=== PATIENT | female | born 1960 | race Caucasian/White ===

== ENCOUNTER 2021-10-16 12:20 | Outpatient (CLI) | payer BC, SELFPAY ==
[2021-10-16 12:51] LABS: Hematocrit 44.7 % (33.0-51.0); Mean Corpuscular HGB Conc 34 gm/dL (32-36); Mean Corpuscular Hemoglobin 32 pg (26-34); Mean Corpuscular Volume 94 fL (80-100); Platelet Count* 179 K/uL (140-440); Red Blood Count 4.76 m/uL (4.00-5.20); White Blood Count* 5.89 K/uL (4.50-11.00)
[2021-10-16 14:32] LABS: Slide Review Reflex No
[2021-10-16 21:28] LABS: Albumin* 4.3 g/dL (3.3-5.0)
[2021-10-16 21:29] LABS: Chloride* 107 mmol/L (96-114); Potassium* 4.3 mmol/L (3.6-5.1); Sodium* 142 mmol/L (135-149)
[2021-10-16 21:31] LABS: Aspartate Amino Transferase* 24 U/L (12-35); Bilirubin Total* 0.8 mg/dL (0.1-1.5); Carbon Dioxide* 27 mmol/L (20-32); Cholesterol* 172 mg/dL (90-199); Creatinine* 0.7 mg/dL (0.5-1.5); Estimated Glomerular Filt Rate 100 ml/min; Total Protein* 6.6 g/dL (6.0-8.3)
[2021-10-16 21:32] LABS: Alanine Aminotransferase* 14 U/L (4-35); Alkaline Phosphatase* 134 U/L (40-150); Blood Urea Nitrogen* 15 mg/dL (7-30); Calcium* 9.1 mg/dL (8.4-10.6); Glucose* 93 mg/dL (60-115); HDL Cholesterol* 73 mg/dL (>=50); LDL Cholesterol Calculated 86 mg/dL (<100); Triglycerides* 63 mg/dL (40-149)
== END 2021-10-16 12:21 | disposition home or self-care (01) ==
PROVIDERS: PCP Physician Assistant Medical; Visit Provider Physician Assistant Medical
DX: Z00.00 Encounter for general adult medical examination without abnormal findings (principal); Z13.6 Encounter for screening for cardiovascular disorders; Z13.29 Encounter for screening for other suspected endocrine disorder; Z13.9 Encounter for screening, unspecified
CPT/HCPCS: 80053; 80061; 84443; 85027

== ENCOUNTER 2022-04-16 08:00 | Outpatient (CLI) | payer BC, SELFPAY ==
--- NOTE | 2022-04-16 09:47 | W.ANESCHARGE ---
Anesthesia Charges Start Date/Time Anesthesia Start Date: 04/16/22 Anesthesia Start Time: 09:04 Stop Date/Time Anesthesia Stop Date: 04/16/22 Anesthesia Stop Time: 09:45
--- NOTE | 2022-04-16 09:57 | W.ANESCHARGE ---
Anesthesia Charges Start Date/Time Anesthesia Start Date: 04/16/22 Anesthesia Start Time: 09:04 Stop Date/Time Anesthesia Stop Date: 04/16/22 Anesthesia Stop Time: 09:45
== END 2022-04-16 08:01 | disposition home or self-care (01) ==
LOC: OP CLINIC 08:03
PROVIDERS: PCP Physician Assistant Medical; Visit Provider Surgery
DX: Z12.11 Encounter for screening for malignant neoplasm of colon (principal); K63.5 Polyp of colon; K62.1 Rectal polyp
CPT/HCPCS: 00811; 45385; 88305; J2704

== ENCOUNTER 2022-10-22 09:30 | Outpatient (CLI) | payer BC, SELFPAY | END 2022-10-22 09:31 | disposition home or self-care (01) | LOC: NFLDREF 10-23 08:37 | PROVIDERS: PCP Physician Assistant Medical; Referring Provider Physician Assistant Medical; Visit Provider Physician Assistant Medical | DX: Z00.00 Encounter for general adult medical examination without abnormal findings (principal); D69.6 Thrombocytopenia, unspecified; Z13.6 Encounter for screening for cardiovascular disorders; Z13.29 Encounter for screening for other suspected endocrine disorder | CPT/HCPCS: 80048; 80061; 84443 ==

== ENCOUNTER 2022-11-28 16:24 | Outpatient (CLI) | payer BC, SELFPAY | END 2022-11-28 16:25 | disposition home or self-care (01) | LOC: NFLDREF 11-29 13:29 | PROVIDERS: PCP Physician Assistant Medical; Referring Provider Physician Assistant Medical; Visit Provider Physician Assistant Medical | DX: D69.6 Thrombocytopenia, unspecified (principal); R79.89 Other specified abnormal findings of blood chemistry | CPT/HCPCS: 80076; 84443 ==

== ENCOUNTER 2023-11-07 13:04 | Outpatient (CLI) | payer BC, SELFPAY ==
--- OUTSIDE RECORDS SUMMARY | 2023-11-07 13:06 | XMS_ITS | Clinical Summary ---
Author Organization [facility] Address [address] [place] [address] Care Team Providers Care Digital Imager Name Role Phone Criss Mendez PA-C Primary Care Provider Encounters Date Type Department Care Team Description 09/09/2023 8:15 AM CDT - 09/09/2023 11:59 PM CDT Hospital Encounter [facility] [address], [address] [place] [address] Criss Mendez PA-C Visit for screening mammogram Discharge Disposition: Home or Self Care 09/09/2023 Travel 09/04/2023 Travel from Last 3 Months Social History Tobacco Use Types Packs/Day Years Used Date Smoking Tobacco: Never Assessed Adolescent Education Answer Date Record ed Getting School Help Needed Not on file 01/15 Sex and Gender Information Value Date Recorded Sex Assigned at Not on file Gender Identity Female 08/19/2017 6:02 PM CDT Sexual Orientation Not on file Plan of Treatment Health Maintenance Due Date Last Done Comments ADVANCE CARE PLANNING 1960 ANNUAL REVIEW OF HM ORDERS 1961 CT COLONOGRAPHY 1961 FIT 1961 FLEX SIG 1961 GLUCOSE 1961 sDNA (Cologuard) 1961 HIV SCREENING 1976 HEPATITIS C SCREENING 10/19/1979 LIPID 2001 RSV VACCINE ( & 60+) (1 - 1-dose 60+ series) 2021 PHQ-2 (once per calendar year) 2023 YEARLY PREVENTIVE VISIT 09/07/2023 09/07/19 23, 09/04/2021, 09/15/2020, Additional history exists INFLUENZA VACCINE (#1) 2023 3, 01/05/2022, 01/05/2021, Additional history exists MAMMO SCREENING 09/08/2025 09/09/2023, 11/2022, 09/06/2021, Additional history exists HPV TEST 09/07/2027 09/06/2022, 08/30, 09/15/2020, Additional history exists PAP 09/07/2027 09/06/2022, 08/30, 09/15/2020, Additional history exists DTAP/TDAP/TD IMMUNIZATION (3 - Td or Tdap) 10/08/2028 10/08/2018, 04/19/2008 COLONOSCOPY 04/22/2032 04/22/2022 COLORECTAL CANCER SCREENING 04/22/2032 ZOSTER IMMUNIZATION Completed 01/30/2019, 9 COVID-19 Vaccine Completed 01/12/2023, 09/2021, 08/05/2021, Additional history exists HPV IMMUNIZATION Aged Out No longer e ligible based on patient's age to complete this topic IPV IMMUNIZATION Aged Out No longer e ligible based on patient's age to complete this topic MENINGITIS IMMUNIZATION Aged Out No l onger eligible based on patient's age to complete this topic Pneumococcal Vaccine: Pediatrics (0 to 5 Years) and At-Risk Patients (6 to 64 Years) Aged Out No longer eligible based on patient's age to complete this topic RSV MONOCLONAL ANTIBODY Aged Out No l onger eligible based on patient's age to complete this topic Procedures Procedure Name Priority Date/Time Associated Diagnosis Comments MA SCREENING BILATERAL W/ WILDA Routine 09/09/2023 8:35 AM CDT Visit for screening mammogram GYNECOLOGIC CYTOLOGY Routine 09/06/2022 4:31 PM CDT Encounter for gynecological examination (general) (routine) without abnormal findings HPV HIGH RISK TYPES DNA CERVICAL Routine 09/06/2022 4:31 PM CDT Encounter for gynecological examination (general) (routine) without abnormal findings from Last 3 Months or Most Recently Relevant to Health Maintenance Results * MA Screen Bilateral w/Wilda (09/09/2023 8:35 AM CDT) Anatomical Region Laterality Modality Breast Bilateral Mammography Impressions 09/09/2023 10:03 AM CDT IMPRESSION: ACR BI-RADS Category 1: Negative BREAST CANCER SCREENING RECOMMENDATION: Routine yearly mammography beginning at age 40 or as discussed with your provider. The results and recommendations of this examination will be communicated to the patient. Radha Wilson MD Narrative 09/09/2023 10:03 AM CDT BILATERAL FULL FIELD DIGITAL SCREENING MAMMOGRAM WITH TOMOSYNTHESIS Performed on: 09/09/23 Compared to: 09/07/2022, 09/06/2021, and 09/08/2020 Technique: ??This study was evaluated with the assistance of Computer-Aided Detection. ??Breast Tomosynthesis was used in interpretation. Findings: The breasts have scattered areas of fibroglandular density. ?? There is no radiographic evidence of malignancy. Criss Mendez PA-C [facility] ORDERABLES * Gynecologic Cytology (PAP) (09/06/2022 4:31 PM CDT) Interpretation Negative for Intraepithelial Lesion or Malignancy (NILM) 09/10/2022 1:47 PM CDT [facility] Comment Papanicolaou Test Limitations: Cervical cytology is a screening test with limited sensitivity, and regular screening is critical for cancer prevention. Pap tests are primarily effective for the diagnosis/prevent ion of squamous cell carcinoma, not adenocarcinoma or other cancers. 09/10/2022 1:47 PM CDT [facility] Specimen Adequacy Satisfactory for evaluation, endocervical/martin sformation zone component present 09/10/2022 1:47 PM CDT [facility] Clinical Information none 09/10/2022 1:47 PM CDT [facility] LMP/Menopause Date NONE 09/10/2022 1:47 PM CDT [facility] Reflex Testing Yes regardless of result 09/10/2022 1:47 PM CDT [facility] Previous Abnormal? No 09/10/2022 1:47 PM CDT [facility] Previous Abnormal Diagnosis Neg/Neg hpv 09/10/2022 1:47 PM CDT [facility] Performing Labs The technical component of this testing was completed at [facility] 09/10/2022 1:47 PM CDT [facility] Brushing CERVIX UTERI STRUCTURE / Unknown 09/06/2022 4:31 PM CDT 09/06/2022 9:40 PM CDT [facility] Specialty Lab [address], [address] [id number] [phone] * HPV High Risk Types DNA Cervical (09/06/2022 4:31 PM CDT) Other HR HPV Negative Negative 09/12/2022 6:41 AM CDT [facility] HPV16 DNA Negative Negative 09/12/2022 6:41 AM CDT [facility] HPV18 DNA Negative Negative 09/12/2022 6:41 AM CDT [facility] FINAL DIAGNOSIS This patient's sample is negative for HPV DNA. This test was developed and its performance characteristics determined by the [facility], Molecular Diagnostics Laboratory. It has not been cleared or approved by the FDA. The laboratory is regulated under CLIA as qualified to perform high-complexity testing. This test is used for clinical purposes. It should not be regarded as investigational or for research. METHODOLOGY: The Miranda Dennis [id number] system uses automated extraction, simultaneous amplification of HPV (L1 region) and beta-globin, followed by real time detection of fluorescent labeled HPV and beta globin using specific oligonucleotide probes. The test specifically identifies types HPV 16 DNA and HPV 18 DNA while concurrently detecting the rest of the high risk types (31, 33, 35, 39, 45, 51, 52, 56, 58, 59, 66 or 68). COMMENTS: This test is not intended for use as a screening device for woman under age 30 with normal cervical cytology. Results should be correlated with cytologic and histologic findings. Close clinical followup is recommended. 09/12/2022 6:41 AM CDT [facility] Brushing CERVIX UTERI STRUCTURE / Unknown Non-blood Collection / Unknown 09/06/2022 4:31 PM CDT 09/11/2022 8:15 AM CDT Annelise Gallegos MD LAB - BLOOD [facility] Molecular Diagnostics [address] [facility], [address] [place] [address], [facility] [phone] from Last 3 Months or Most Recently Relevant to Health Maintenance Care Teams Digital Imager Relationship Specialty Start Date End Date Criss Mendez PA-C [facility] [address] [place] [address] PCP - General Physician Crankshaft Grinder 09/02/23
--- OUTSIDE RECORDS SUMMARY | 2023-11-07 13:06 | XMS_ITS | Encounter Summary ---
Author Organization [facility] Address [address] [place] [address] Care Team Providers Care Maintenance Welder Name Role Phone Criss Mendez PA-C Primary Care Provider Encounter Details Date Type Department Care Team (Latest Contact Info) Description 09/09/2023 Travel Social History Tobacco Use Types Packs/Day Years Used Date Smoking Tobacco: Never Assessed Adolescent Education Answer Date Record ed Getting School Help Needed Not on file 01/15 Sex and Gender Information Value Date Recorded Sex Assigned at Not on file Gender Identity Female 08/19/2017 6:02 PM CDT Sexual Orientation Not on file documented as of this encounter Plan of Treatment Not on file documented as of this encounter Visit Diagnoses Not on filedocumented in this encounter Care Teams Maintenance Welder Relationship Specialty Start Date End Date Criss Mendez PA-C [facility] [address] [place] [address] PCP - General Physician Computer Video Game Designer 09/02/23 documented as of this encounter
--- OUTSIDE RECORDS SUMMARY | 2023-11-07 13:06 | XMS_ITS | Referral Summary ---
Author Organization [facility] Address [address] [place] [address] Care Team Providers Care Junior Account Executive Name Role Phone Criss Mendez PA-C Primary Care Provider Encounters Date Type Department Care Team Description 09/09/2023 Travel 09/09/2023 8:15 AM CDT - 09/09/2023 11:59 PM CDT Hospital Encounter [facility] [address], [address] [place] [phone] Criss Mendez PA-C Visit for screening mammogram Discharge Disposition: Home or Self Care 09/04/2023 Travel from Last 3 Months Social History Tobacco Use Types Packs/Day Years Used Date Smoking Tobacco: Never Assessed Adolescent Education Answer Date Record ed Getting School Help Needed Not on file 01/15 Sex and Gender Information Value Date Recorded Sex Assigned at Not on file Gender Identity Female 08/19/2017 6:02 PM CDT Sexual Orientation Not on file Plan of Treatment Not on file Procedures Procedure Name Priority Date/Time Associated Diagnosis [...] radiographic evidence of malignancy. Criss Mendez PA-C [facility] MAMMOGRAPHY ORDERABLES * Gynecologic Cytology (PAP) (09/06/2022 [...] component of this testing was completed at [facility] 09/10/2022 1:47 PM CDT [facility] Brushing CERVIX UTERI STRUCTURE / Unknown 09/06/2022 4:31 PM CDT 09/06/2022 9:40 PM CDT Annelise [facility] Specialty Lab [address] [facility], [address] [address], [facility] [phone] * HPV High Risk Types DNA Cervical (09/06/2022 4:31 PM CDT) Other HR HPV Negative Negative 09/12/2022 6:41 AM CDT [facility] HPV16 DNA Negative Negative 09/12/2022 6:41 AM CDT [facility] HPV18 DNA Negative Negative 09/12/2022 6:41 AM CDT [facility] FINAL DIAGNOSIS This patient's sample is negative for HPV DNA. This test was developed and its performance characteristics determined by the [facility], Molecular Diagnostics Laboratory. It has not been [...] followup is recommended. 09/12/2022 6:41 AM CDT [facility] Brushing CERVIX UTERI STRUCTURE / Unknown Non-blood Collection / Unknown 09/06/2022 4:31 PM CDT 09/11/2022 8:15 AM CDT Annelise Gallegos MD LAB - BLOOD [facility] [address] [facility] [address] [facility], [address] [place] [address], [facility] [phone] from Last 3 Months or Most Recently Relevant to Health Maintenance Care Teams Junior Account Executive Relationship Specialty Start Date End Date Criss Mendez PA-C [facility] [address] [place] [address] PCP - General Physician Operations Plant Attendant 09/02/23
--- OUTSIDE RECORDS SUMMARY | 2023-11-07 13:07 | XMS_ITS | Encounter Summary ---
Author Organization [facility] Address [address] [place] [address] Care Team Providers Care Rail Equipment Operator Name Role Phone Criss Mendez PA-C Primary Care Provider Reason for Referral * Diagnostic Imaging Mammo (Routine) - Pending Review Specialty Diagnoses / Procedures Referred By Gabriel courtney Referred To Contact Radiology. Diagnoses Visit for screening mammogram Procedures MA Screen Bilateral w/Criss Martínez PA-C [address] [address] Referral ID Status Reason Start Date Expiration Date V isits Requested Visits Authorized [id number] Pending Review 09/02/2023 09/01/2024 1 1 Reason for Visit * Diagnostic Imaging Mammo (Routine) - Pending Review Specialty Diagnoses / Procedures Referred By Gabriel courtney Referred To Contact Radiology. Diagnoses Visit for screening mammogram Procedures MA Screen Bilateral w/Criss Martínez PA-C [address] [address] Referral ID Status Reason Start Date Expiration Date V isits Requested Visits Authorized [id number] Pending Review 09/02/2023 09/01/2024 1 1 Encounter Details Date Type Department Care Team (Late st Contact Info) Description 09/09/2023 8:15 AM CDT - 09/09/2023 11:59 PM CDT Hospital Encounter [facility] [address] [facility], [address] [place] [address] Criss Mendez PA-C [facility] [address] [place] [address] Visit for screening mammogram Discharge Disposition: Home or Self Care Social History Tobacco Use Types Packs/Day Years [...] on file documented as of this encounter Procedures Procedure Name Priority Date/Time Associated Diagnosis Comments MA SCREENING BILATERAL W/ WILDA Routine 09/09/2023 8:35 AM CDT Visit for screening mammogram documented in this encounter Results * MA Screen Bilateral w/Wilda (09/09/2023 [...] radiographic evidence of malignancy. Criss Mendez PA-C IMG MAMMOGRAPHY ORDERABLES documented in this encounter Visit Diagnoses Diagnosis Visit for screening mammogram Other screening mammogram documented in this encounter Care Teams Rail Equipment Operator Relationship Specialty Start Date End Date Criss Mendez PA-C [facility] [address] [place] [address] PCP - General Physician Business Dean 09/02/23 documented as of this encounter
--- OUTSIDE RECORDS SUMMARY | 2023-11-07 13:07 | XMS_ITS | Encounter Summary ---
Author Organization [facility] Address [address] [place] [address] Care Team Providers Care Washer Blanket Name Role Phone Criss Mendez PA-C Primary Care Provider Encounter Details Date Type Department Care Team (Latest Contact Info) Description 09/04/2023 Travel Social History Tobacco Use Types Packs/Day [...] on filedocumented in this encounter Care Teams Washer Blanket Relationship Specialty Start Date End Date Criss Mendez PA-C [facility] [address] [place] [address] PCP - General Physician Meal Grinder Tender 09/02/23 documented as of this encounter
--- OUTSIDE RECORDS SUMMARY | 2023-11-07 13:07 | XMS_ITS | Clinical Summary ---
Author Organization [facility] Address [place], [place] [address] Care Team Providers Care Telephone Triage Nurse Name Role Phone Eden Jacobs MD Primary Care Provider + Allergies No known active allergies Medications Medication Sig Dispensed Refills Start Date End Date Status drospirenone-ethinyl estradiol (OCELLA) 3-0.03 mg tablet Take 1 tablet by mouth once daily. 1 Package 0 04/24/2010 Active Active Problems Problem Noted Date Diagnosed Date Preventative health care 11/16/2011 Overview: Seeing Saumya FELL CUTTER. Her PAP and mammo 09.21.2011 were normal. Immunizations Name Administration Dates Next Due AMB Influenza, IIV3 (Age >=3 years)(Flu Clinic O n[facility]) 01/19/2010 Tdap 04/19/2008 Family History Medical History Relation Name Comments Allergies Brother Other Brother autistic Good Health Daughter phil Arthritis Father mild back Good Health Father Other Maternal Grandfather Other Maternal Grandmother Hypertension Mother Blood Disease Paternal Grandfather pernic ious anemia Other Paternal Grandmother Good Health Sister m 1/2 Good Health Son hunter Relation Name Status Comments Brother Alive Daughter phil Alive Father Alive Maternal Grandfather (Age 62) em physema Maternal Grandmother (Age 89) un certain Mother Alive Paternal Grandfather (Age 94) ol d age Paternal Grandmother (Age 76) em physema Sister m 1/2 Alive Son hunter Alive Social History Tobacco Use Types Packs/Day Years Used Date Smoking Tobacco: Never Smokeless Tobacco: Never Alcohol Use Standard Drinks/Week Comments Yes 0 (1 standard drink = 0.6 oz pure alcohol) 0-2 glasses of red wine nightly Sex and Gender Information Value Date Recorded Sex Assigned at Not on file Gender Identity Not on file Sexual Orientation Not on file Obstetrics History Para Term AB IAB SAB Ectopic Multiple Livin g Live Births 3 2 2 1 1 2 Date Outcome GA Total Labor Labor/2nd/3rd Weight Sex Type Anes PTL Silvana A1 A5 Name Clin Term Term IAB Comments Edema with and hig h BP at delivery Last Filed Vital Signs Vital Sign Reading Time Taken Comments Blood Pressure 112/64 11/16/2011 2:19 PM CDT Pulse 78 11/16/2011 2:19 PM CDT Temperature 36.6 ??C (97.9 ??F) 04/24/2010 9:13 AM CS T Respiratory Rate - - Oxygen Saturation - - Inhaled Oxygen Concentration - - Weight 63.4 kg (139 lb 11.2 oz) 11/16/2011 2:19 PM CDT Height 162.6 cm (5' 4) 11/16/2011 2:19 PM CDT Body Mass Index 23.98 11/16/2011 2:19 PM CDT Plan of Treatment Health Maintenance Due Date Last Done Comments Depression screening for age 12+ 1973 HIV for age 15-65 1976 BMI (ht and wt on same day) for age 18+ 10/19/1979 Hepatitis C screening for age 18-79 10/19/1979 Colonoscopy through age 75 2006 Zoster (shingles) series for age 50+ (1 of 2) 10/19/2011 Mammogram for age 45-75 09/09/2015 09/09/19 15, 09/09/2013, 08/31/2011, Additional history exists Lipids for age 45-75 11/15/2016 11/16/2011, 04/24/19 11 Tetanus booster 04/19/2018 04/19/2008 Pap test for age 21-65 10/08/2021 9, 10/08/2018, 08/31/2011 COVID-19 vaccine series (2022- season) 2022 Influenza for age 50-64 12/01/2023 01/19/2010 Tdap Completed 04/19/2008 Pneumococcal series for age 6-64 Aged Out No longer eligible based on patient's age to complete this topic Procedures Procedure Name Priority Date/Time Associated Diagnosis Comments PEOPLESOFT FUNCTIONAL ANALYST THIN PREP PAP SCREEN IMAGED Routine 10/08/2018 11:00 AM CDT SCAN-MAMMOGRAPHY REPORT 09/08/2014 8:19 AM CDT LIPID PANEL Routine 11/16/2011 9:50 AM CDT Screening for lipoid disorders from Last 3 Months or Most Recently Relevant to Health Maintenance Results * PEOPLESOFT FUNCTIONAL ANALYST THIN PREP PAP SCREEN IMAGED (10/08/2018 11:00 AM CDT) Case Report Gynecologic Cytology Report ? Case: [id number] ? Authorizing Provider: ??Unknown, Doctor ?Collected: ? 10/08/2018 1100 ? Ordering Location: ? [facility] ?Received: ?10/08/2018 1807 ? First Screen: ?Sammy Richter ? Rescreen: ?Beth White ? Specimen: ?PEOPLESOFT FUNCTIONAL ANALYST ThinPrep Vial Screening, Cervical/Vaginal ? 10/20/2018 12:34 PM CDT [facility] INTERPRETATION/ RESULT NEGATIVE FOR INTRAEPITHELIAL LESION OR MALIGNANCY (NIL) (none) 10/20/2018 12:34 PM CDT [facility] IMEN ADEQUACY Satisfactory for evaluation Endocervical component present 10/20/2018 12:34 PM CDT [facility] HPV REQUEST HPV and PAP 10/20/2018 12:34 PM CDT [facility] Date of LMP 10/20/2018 12:34 PM CDT [facility] Comment:+14yrs Last Pap Date 09/08/2014 10/20/2018 12:34 PM CDT [facility] Last Pap Result NIL 9 12:34 PM CDT [facility] Automated Review Successful 10/20/2018 12:34 PM CDT [facility] Comment:Specimen processed s uccessfully by automated site director device, ThinPrep Imaging System, [employer] ANCILLARY TESTING PEOPLESOFT FUNCTIONAL ANALYST HPV Ordered, Please see separate report 10/20/2018 12:34 PM CDT [facility] Note The pap test is a screening technique, not a diagnostic procedure. ??It is used primarily to screen for squamous cancers and precursor lesions. ??Published studies have shown that it is subject to both false negative and false positive results. ??The pap test should not be used as the sole means to diagnose or exclude pre-malignant and malignant lesions. Cytology is screened and interpreted at [facility] - [address], [place] [address] and [facility] - [address] [place] [address]; [place] [address] and [facility] - [address]; [place] [address] [address] [facility] [address]; [place] [address] 10/20/2018 12:34 PM CDT [facility] Other (Cervical/Vagina l) 10/08/2018 11:00 AM CDT 10/08/2018 6:07 PM CDT Doctor Unknown PATHOLOGY/CYTOLOGY [facility] [address] [place] [address], [place] * SCAN-MAMMOGRAPHY REPORT (09/08/2014 8:19 AM CDT) Anatomical Region Laterality Modality Other Narrative 09/09/2014 11:18 AM CDT Procedure Note Scanner - 09/08/2014 8:19 AM CDT Scanner OTHER * LIPID PANEL (11/16/2011 9:50 AM CDT) CHOLESTEROL,TOTAL 135 100 - 199 mg/dL [facility] TRIGLYCERIDES 95 <150 mg/dL [facility] HDL CHOLESTEROL 44 >40 mg/dL [facility] CHOL/HDL RATIO 3.07 <4.50 [facility] LDL CHOLESTEROL 72 <131 mg/dL [facility] PATIENT STATUS Fasting [facility] Blood specimen (specimen) BLOOD SPECIMEN / Unknown 11/16/2011 9:50 AM CDT 11/16/2011 2:49 PM CDT Eden Jacobs MD CHEMISTRY [facility] INTERNAL ZIP [address] [place] [address] from Last 3 Months or Most Recently Relevant to Health Maintenance Care Teams Telephone Triage Nurse Relationship Specialty Start Date End Date Eden Jacobs MD [facility] - General 01/11/10
== END 2023-11-07 13:05 | disposition home or self-care (01) ==
PROVIDERS: PCP Physician Assistant Medical; Visit Provider Physician Assistant Medical
DX: R79.89 Other specified abnormal findings of blood chemistry (principal); R74.01 Elevation of levels of liver transaminase levels
CPT/HCPCS: 80053; 80061; 84443

== ENCOUNTER 2023-12-09 16:00 | Outpatient (CLI) | payer BC, SELFPAY ==
--- OUTSIDE RECORDS SUMMARY | 2023-12-15 10:27 | XMS_ITS | Clinical Summary ---
Author Organization [facility] Address [place], [place] [address] Care Team Providers Care Aircraft Engine Dismantler Name Role Phone Eden Jacobs MD Primary Care Provider + Allergies No known active allergies Medications Medication Sig Dispensed Refills Start Date End Date Status drospirenone-ethinyl estradiol (OCELLA) 3-0.03 mg tablet Take 1 tablet by mouth once daily. 1 Package 0 04/24/2010 Active Active Problems Problem Noted Date Diagnosed Date Preventative health care 11/16/2011 Overview (11/16/2011): Seeing Sa[employer] [employer]. Her PAP and mammo 09.21.2011 were normal. [...] 10/08/2018, 08/31/2011 COVID-19 vaccine series (2022- season) 2023 Influenza for age 50-64 12/01/2023 01/19/2010 Tdap Completed 04/19/2008 Pneumococcal series for age 6-64 Aged Out No longer eligible based on patient's age to complete this topic Procedures Procedure Name Priority Date/Time Associated Diagnosis Comments ARCHITECTURE FACULTY MEMBER THIN PREP PAP SCREEN IMAGED Routine 10/08/2018 11:00 AM CDT SCAN-MAMMOGRAPHY REPORT 09/08/2014 8:19 AM CDT LIPID PANEL Routine 11/16/2011 9:50 AM CDT Screening for lipoid disorders from Last 3 Months or Most Recently Relevant to Health Maintenance Results * ARCHITECTURE FACULTY MEMBER THIN PREP PAP SCREEN IMAGED (10/08/2018 11:00 AM CDT) Case Report Gynecologic Cytology Report ? Case: [id number] ? Authorizing Provider: ??Unknown, Doctor ?Collected: ? 10/08/2018 1100 ? Ordering Location: ? [facility] ?Received: ?10/08/2018 1807 ? First Screen: ?Sammy Richter ? Rescreen: ?Beth White ? Specimen: ?ARCHITECTURE FACULTY MEMBER ThinPrep Vial Screening, Cervical/Vaginal ? 10/20/2018 12:34 PM CDT [facility] INTERPRETATION/ RESULT NEGATIVE FOR INTRAEPITHELIAL LESION OR MALIGNANCY (NIL) (none) 10/20/2018 12:34 PM T [facility] IMEN ADEQUACY Satisfactory for evaluation Endocervical component present 10/20/2018 12:34 PM CDT [facility] HPV REQUEST HPV and PAP 10/20/2018 12:34 PM CDT [facility] Date of LMP 10/20/2018 12:34 PM CDT [facility] Comment:+14yrs Last Pap Date 09/08/2014 10/20/2018 12:34 PM CDT [facility] Last Pap Result NIL 9 12:34 PM T [facility] Automated Review Successful 10/20/2018 12:34 PM CDT [facility] Comment:Specimen processed s uccessfully by automated farm crew leader device, ThinPrep Imaging System, [employer] ANCILLARY TESTING ARCHITECTURE FACULTY MEMBER HPV Ordered, Please see separate report 10/20/2018 12:34 PM CDT [facility] Note The pap test is a [...] lesions. Cytology is screened and interpreted at [facility] - [address], [place] [address] and [facility] - [address] [place] [address]; [place] [address] and [facility] - [address]; [place] [address] and [facility] [address]; [place] [address] 10/20/2018 12:34 PM T [facility] Other (Cervical/Vagina l) 10/08/2018 11:00 AM CDT 10/08/2018 6:07 PM CDT Doctor Unknown PATHOLOGY/CYTOLOGY [facility] [address] [place] [address], * SCAN-MAMMOGRAPHY REPORT (09/08/2014 8:19 AM CDT) Anatomical Region Laterality Modality Other Narrative 09/09/2014 11:18 AM CDT Procedure Note Scanner - 09/08/2014 8:19 AM CDT Scanner OTHER * LIPID PANEL (11/16/2011 9:50 AM CDT) CHOLESTEROL,TOTAL 135 100 - 199 mg/dL [facility] TRIGLYCERIDES 95 <150 mg/dL [facility] HDL CHOLESTEROL 44 >40 mg/dL [facility] CHOL/HDL RATIO 3.07 <4.50 [facility] LDL CHOLESTEROL 72 <131 mg/dL [facility] PATIENT STATUS Fasting [facility] Blood specimen (specimen) BLOOD SPECIMEN / Unknown 11/16/2011 9:50 AM CDT 11/16/2011 2:49 PM CDT Eden Jacobs MD CHEMISTRY [facility] INTERNAL ZIP [address] [place] [address] from Last 3 Months or Most Recently Relevant to Health Maintenance Care Teams Aircraft Engine Dismantler Relationship Specialty Start Date End Date Eden Jacobs MD PCP - General 01/11/10
--- OUTSIDE RECORDS SUMMARY | 2023-12-15 10:27 | XMS_ITS | Referral Summary ---
Author Organization [facility] Address [address] [place] [address] Care Team Providers Care Bakery Team Member Name Role Phone Criss Mendez PA-C Primary Care Provider Social History Tobacco Use Types Packs/Day Years [...] radiographic evidence of malignancy. Criss Mendez PA-C [facility] MAMMOGRAPHY ORDERABLES * Gynecologic Cytology (PAP) (09/06/2022 [...] component of this testing was completed at [facility] 09/10/2022 1:47 PM CDT [facility] Brushing CERVIX UTERI STRUCTURE / Unknown 09/06/2022 4:31 PM CDT 09/06/2022 9:40 PM CDT Annelise Gallegos MD LAB - [facility] Specialty Lab [address] [facility], [address] [address], [facility] [phone] * HPV High Risk Types DNA Cervical [...] its performance characteristics determined by the [facility] Molecular Diagnostics Laboratory. It has not [...] [facility] [address] [facility] [address], [address] [place] [address], [facility] [phone] from Last 3 Months or Most Recently Relevant to Health Maintenance Care Teams Bakery Team Member Relationship Specialty Start Date End Date Criss Mendez PA-C [facility] [address] [place] [address] PCP - General Physician Fruit Distributor 09/02/23
--- OUTSIDE RECORDS SUMMARY | 2023-12-15 10:27 | XMS_ITS | Encounter Summary ---
Author Organization [facility] [facility] Address [address] [place] [address] Care Team Providers Care Can Cleaner Name Role Phone Criss Mendez PA-C Primary Care Provider Reason for Referral * Diagnostic Imaging Mammo (Routine) - Pending Review Specialty Diagnoses / Procedures Referred By Gabriel courtney Referred To Contact Radiology. Diagnoses Visit for screening mammogram Procedures [place] Screen Bilateral w/Criss Martínez PA-C [address] [address] Referral ID Status Reason Start Date Expiration Date V isits Requested Visits Authorized [id number] Pending Review 09/02/2023 09/01/2024 1 1 Reason for Visit * Diagnostic Imaging Mammo (Routine) - Pending Review Specialty Diagnoses / Procedures Referred By Gabriel courtney Referred To Contact Radiology. Diagnoses Visit for screening mammogram Procedures [place] Screen Bilateral w/Criss Martínez PA-C [address] [address] Referral ID Status Reason Start Date Expiration Date V isits Requested Visits Authorized [id number] Pending Review 09/02/2023 09/01/2024 1 1 Encounter Details Date Type Department Care Team (Late st Contact Info) Description 09/09/2023 8:15 AM CDT - 09/09/2023 11:59 PM CDT Hospital Encounter [facility] [address] [facility], [address] [place] [address] Criss Mendez PA-C [facility] [address] [place] [address] Visit for screening mammogram Discharge Disposition: Home [...] mammogram documented in this encounter Care Teams Can Cleaner Relationship Specialty Start Date End Date Criss Mendez PA-C [facility] [address] [place] [address] PCP - General Physician It Systems Administrator 09/02/23 documented as of this encounter
--- OUTSIDE RECORDS SUMMARY | 2023-12-15 10:27 | XMS_ITS | Encounter Summary ---
Author Organization [facility] Address [address] [place] [address] Care Team Providers Care Branch Sales Manager Name Role Phone Criss Mendez PA-C Primary [...] on filedocumented in this encounter Care Teams Branch Sales Manager Relationship Specialty Start Date End Date Criss Mendez PA-C [facility] [address] [place] [address] PCP - General Physician Metrology Engineer 09/02/23 documented as of this encounter
--- OUTSIDE RECORDS SUMMARY | 2023-12-15 10:27 | XMS_ITS | Data Portability ---
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 -RHM: Pap smear up to date, due in 2027. Declines STD screening. Calcium and vitamin D recommendations reviewed. Regular cardiovascular exercise recommendations reviewed. Reviewed breast cancer screening recommendations, namely breast self awareness and annual mammograms, just completed today, results pending. Colon cancer screening up to date, due in 2029, discussed today. Bone density screening at age 65 or sooner with risk factors. Fasting labs with PCP. Vaccine recommendations reviewed. [email or web address] Not available 09/09/2023 12:37:26 Plan of Treatment Reminders Order Date Submit Date Provider Last Modified By Organization Details Last Modified Time Details Appointments None recorded. Lab hemoglobin (Hb), fingerstick , blood 2020 021 [email or web address] 9 [id number] _[place] , [address] [facility], [address], [place], [address], 15:10:19 pap, LB 2020 021 [facility], [address] [place], [address], 06/25/202 1 11:37:18 HPV DNA, high-risk 2020 021 [facility], [address], [address], 11:37:17 Pap test, slide(s), cervical 2022 023 [facility], [address] [facility], [address], [place], [address], 3 07:43:19 Referral None recorded. Procedures None recorded. Surgeries None recorded. Imaging None recorded. Medication Orders None recorded. Patient TargetsNo targets recorded. Patient InstructionsNo instructions recorded. Reason for Referral None Reported. Results Created Date Observation Date Name Description Value Unit Range Abnormal Flag Note LastModifiedBy Organization Detail LastModifiedTime 09/15/2020 hemog lobin (Hb), finge rstic k, blood fingerstick hemoglobin 14.3 g/dL 12.0-1 5.0 Not Available [id number] [address] [facility] [address], [place], [address], 09/15/2020 10:22:29 09/16/19 21 09/15/2020 HPV HIGH RISK DNA WITH 16/18 GENOT YPING HPV high risk type 16 Negati ve for HPV type 16. negati ve for HPV type 16. Not Available [facility] [address] [place], [address], 09/23/2020 11:37:17 09/16/19 21 09/15/2020 HPV HIGH RISK DNA WITH 16/18 GENOT YPING HPV high risk type 18 Negati ve for HPV type 18. negati ve for HPV type 18. Not Available [facility] [address] [place], [address], 09/23/2020 11:37:17 09/16/19 21 09/15/2020 HPV HIGH RISK DNA WITH 16/18 GENOT YPING HPV other high risk types Negati ve for other high risk HPV types. negati ve for other high risk HPV types. HPV other high risk types inclu de 31, 33, 35, 39, 45, 51, 52, 56, 58, 59, 66, and 68. Not Available [facility] [address] [place], [address], 09/23/2020 11:37:17 09/16/19 21 09/15/2020 PAP TEST (BRAND ATTENDANT CYTOL OGY) case report See note CASE REPOR T ----- ----- ----- ----- ----- ----- ----- ----- Pap Smear Case: [id number] Autho micky iglesias Provi anthony: Brenda Schmitt MD Colle cted: 09/15 10:02 AM Order ing Locat ion: [facility] ia Healt h Recei yves: 09/15 03:05 PM [facility] First Scree n: Dulce Markham Speci men: Cervi johnson Thin Prep with HPV Test Image r Screcorina sheehan, Cervi x ===== ===== ===== ==== = INTER PRETA TION: = ===== ===== ===== ==== Negat kavita for intra epith elial lesio n or thomas nant cells . Elect quincy collins d by Dulce Markham on 2020 at 10:36 AM SPECI MEN ADEQU ACY ----- ----- ----- ----- ----- ----- ----- ----- Satis facto ry for evalu ation . Endoc farhat al/tr ansfo rmati on zone compo nent absen t. CLINI JOHNSON INFOR MATIO N ----- ----- ----- ----- ----- ----- ----- ----- Postm enopa usal LMP ----- ----- ----- ----- ----- ----- ----- ----- N/A PAP DISCL AIMER ----- ----- ----- ----- ----- ----- ----- ----- This speci men was scree paulo by the ThinP rep Imagi ng Syste m prior to manua l revie w by a cytot echno logis t and/o r patho logis t. The Pap test is a scree sissy test and has an irred ucibl e false -nega tive rate. Routi ne perio dic testi ng and follo w-up of unexp lenora d clini johnson signs and sympt oms are impor tant to minim ize the conse quenc e of false -nega tive Pap tests . Megan pinzon et al. 2012 Updat ed Conse nsus Guide lines for the Manag ement of Abnor mal Cervi johnson Cance r Scree sissy Tests and Cance r Precu rsors . J Low Genit Tract Dis 2013; 17 (5): S2-S2 7 Not Available [facility] [address], [place], [address], 09/23/2020 11:37:18 09/07/19 23 09/06/2022 GYNEC OLOGI C CYTOL OGY (PAP SMEAR ) gynecologic cytology SEE RESULT S BELOW SPECI MEN SOURC E Stanley ing Cervi x BKR LAB AP BRAND ATTENDANT INTER PRETA TION: Negat kavita for Intra epith johnathon lamb or Thomas dominguez ([facility] ) Elect quincy almanzar karina d by Gabrielle Post do, WOLF (ASCP ) on 2022 at 1:47 PM Path repor [email or web address] ments Imp Spec: Papan icola ou Test Limit ation s: Cervi johnson cytol ogy is a scree sissy test with limit ed sensi tivit y, and regul ar scree sissy is criti johnson for cance r preve ntion . Pap tests are prima rily effec tive for the diagn osis/ preve ntion of squam ous cell carci noma, not adeno carci noma or other cance rs. BKR LAB AP BRAND ATTENDANT ADEQU ACY: Satis facto ry for evalu ation , endoc ervic al/tr ansfo rmati on zone compo nent prese nt Path repor t.rel evant Hx Spec: none BKR LAB AP LMP: NONE BKR LAB AP HPV REFLE X: Yes regar dless of resul t BKR LAB AP PREVI OUS ABNOR MAL: No BKR LAB AP PREVI OUS ABNL DX: Neg/N eg hpv Path repor [email or web address] ments Imp Spec: The techn ical compo nent of this testi ng was compl eted at [facility] [place] [facility] Not Available [address], [place], [address], 09/12/2022 07:43:19 09/07/19 23 09/06/2022 HPV HIGH RISK TYPES DNA CERVI JOHNSON other HR HPV Negati ve negati ve Not Available [address], [place], [address], 09/12/2022 07:43:25 09/07/19 23 09/06/2022 HPV HIGH RISK TYPES DNA CERVI JOHNSON HPV16 DNA Negati ve negati ve Not Available [address], [place], [address], 09/12/2022 07:43:25 09/07/19 23 09/06/2022 HPV HIGH RISK TYPES DNA CERVI JOHNSON HPV18 DNA Negati ve negati ve Not Available [address], [place], [address], 09/12/2022 07:43:25 09/07/19 23 09/06/2022 HPV HIGH RISK TYPES DNA CERVI JOHNSON final diagnosis See note below This patie nt's sampl e is negat kavita for HPV DNA. This test was nati oped and its perfo rmanc e asif cteri stics deter mined by the [facility] [place] [facility], [facility] at[facility] . It has not been clear ed or appro yves by the FDA. The labor atory is regul ated under CLIA as quali fied to perfo rm high- compl exity testi ng. This test is used for clini johnson purpo ses. It shoul d not be regar ded as inves tigat ional or for resea rch. METHO DOLOG Y: The Miranda Dennis 4800 syste m uses autom ated extra ction , simul taneo us ampli ficat ion of HPV (L1 regio n) and beta- globi n, follo wed by real time detec tion of fluor escen t label ed HPV and beta globi n using speci fic oligo nucle otide probe s. The test speci fical ly ident ifies types HPV 16 DNA and HPV 18 DNA while concu rrent ly detec ting the rest of the high risk types (31, 33, 35, 39, 45, 51, 52, 56, 58, 59, 66 or 68). COMME NTS: This test is not inten ded for use as a scree sissy devic e for woman under age 30 with haris l cervi johnson cytol ogy. Resul ts shoul d be corre lated with cytol ogic and histo logic findi ngs. Close clini johnson follo wup is recom josseline d. Not Available [address], [place], [address], 09/12/2022 07:43:25 09/08/19 22 09/06/2021 MAMMO , scree sissy, bilat eral, w/ CAD No observ ation record ed. [email or web address] [facility] [address] [facility], [place], [address], 09/07/2021 11:36:04 09/08/19 23 09/07/2022 MAMMO , scree sissy, tomos ynthe sis, bilat eral, w/ CAD No observ ation record ed. [email or web address] [facility] [address] [facility], [place], [address], 09/07/2022 15:41:43 Result Notes None recorded. Problems No Known Problems Procedures Surgical History Date Name Laterality Status Provider Name and Address Organization Details Recorded Time 09/08/19 23 Date of Last Mammogram completed Kayleigh Yip null [place] [facility] 09/09/2023 12:00:04 09/07/19 23 Date of Last Pap Smear completed Lesia el [place] [facility] 09/12/2022 11:46:10 04/23/19 23 Date of [place] [address], [place], [address], [place] [facility] [facility] 09/06/2022 16:20:47 tonsillectomy completed Not Available [facility] 11/09/2019 01:06:00 tooth extraction completed [facility] 11/09/2019 01:06:00 colposcopy of cervix completed Not Available [facility] 11/09/2019 01:06:00 Removal of ovarian cyst(s) completed Not Available [facility] 11/09/2019 01:06:00 Imaging Results Imaging Date Name Status LastModified by Organiz ation Details LastModified Time 09/06/2021 MAMMO, screening, bilateral, w/ CAD completed [email or web address] [facility] [address] [facility], [place], [address], 09/07/2021 11:36:04 09/07/2022 MAMMO, screening, tomosynthe sis, bilateral, w/ CAD completed [email or web address] [facility] [address] [place], [address], 09/07/2022 15:41:43 Procedure Notes None recorded. Medical Equipment None Reported. Allergies Allergen ID Allergen Name Allergen Category Reaction Reaction Severity Criticality Documentation Date Start Date Code Code System Note Provider Name and Address Organization Details Recorded Time 591301 pseudoeph edrine hydrochlo ride medicatio n Not available Not available Not available 11/06/2019 04084 RxNorm *Note : 09/16 - Not Available [facility] 16:59:03 Medications Name Sig Start Date Stop Date Status Note LastModified by Organization Details LastModified Time binaxnow cov kit home abigail 09/06 completed Not Available Not Available Not Available ketoconazol e 2 % topical cream active Not Available Not Available Not Available fluocinonid e 0.05 % topical cream APPLY CREAM TOPICALLY TO LEFT WRIST TWICE DAILY FOR 2 WEEKS 09/06 completed Not Available Not Available Not Available Zyrtec 10 mg capsule Take by oral route. active Not Available Not Available No t Available BinaxNOW COVID-19 Ag Self Test kit Use as Directed on the Package 09/06 completed Not Available Not Available Not Available Vitals Date Recorded Body height Body mass index (BMI) Body weight Systolic blood pressure Diastolic blood pressure Provider Name and Address Organization Details Last Updated DateTime 09/04/2021 162.4584 cm 25.1 kg/m2 62231.49 g 126 mm[Hg] 80 mm[Hg] Sari Antoine (TERMED) [facility] SHIP'S OFFICER 2 17:15:38 Date Recorded Body weight Body mass index (BMI) Body height Systolic blood pressure Diastolic blood pressure Provider Name and Address Organization Details Last Updated DateTime 09/06/2022 61417.75 g 24.4 kg/m2 160.02 cm 122 mm[Hg] 88 mm[Hg] Sari Antoine (TERMED) [facility] SHIP'S OFFICER 3 16:11:17 Date Recorded Body height Body mass index (BMI) Body weight Systolic blood pressure Diastolic blood pressure Provider Name and Address Organization Details Last Updated DateTime 09/09/2023 160.02 cm 26.3 kg/m2 27795.11 g 114 mm[Hg] 78 mm[Hg] Kayleigh Yip [facility] SHIP'S OFFICER 4 12:03:48 Date Recorded Body height Body mass index (BMI) Body weight Systolic blood pressure Diastolic blood pressure Provider Name and Address Organization Details Last Updated DateTime 09/15/2020 162.4584 cm 24.2 kg/m2 80157.52 g 120 mm[Hg] 76 mm[Hg] Sari Antoine (TERMED) GIOVANNI Ellis [employer] OFF[employer] 1 10:17:16 Social History Question Answer Notes LastModified by Organizat ion Details LastModified Time Tobacco Smoking Status Former Smoker Age Start/Stop: Kayleigh el, GIOVANNI Ellis [employer] OFF[employer] 09/04/2021 11:18:06 Do You Have An Advance Directive? Yes Information not available 09/09/2023 What Is Your Level Of Alcohol Consumption? Occasional Current Some Day Information not available 09/04/2021 What Is Your Level Of Caffeine Consumption? Moderate 2c/day Information not available 09/06/2022 Which Illicit Or Recreational Drugs Have You Used? 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 Information not available 09/04/2021 Do You Use Any Illicit Or Recreational Drugs? No Information not available 09/04/2021 Sex: Unknown Functional Status Question Answer Note LastModified by Organizat ion Details LastModified Time What is your exercise level? Heavy Heavy Amount of Exercise (4 or more times weekly) *Note: runs 5K 3-4x/week, weights Information not available 11/09/2019 Mental Status None recorded. Family History Relationship Description Onset Age of this Age Resolved Age Notes Mother Benign essential hypertension Hypertension Father Squamous cell carcinoma of skin 86 Medical History No medical history recorded. Gynecological History Statement/Question Response History of Abnormal PAP Y 53 History of Recurrent Ovarian Cysts Y HPV Test Negative Date of Last Colonoscopy 04/23/2022 Date of Last Mammogram 09/07/2022 History of Sexually Transmitted Infectio n N Y N Urinary Incontinence Symptoms N Date of Last Pap Smear 09/06/2022 Post Menopausal Hormone Therapy User Nev er Obstetrics History GPAL:G 3 P 2 0 1 2 Type Value Multiple Births 0 Full Term 2 Induced 0 Spontaneous 1 Premature 0 Living 2 Ectopics 0 Total 3 Immunizations Vaccine Type Date Status Provider Name and Address Organization Details Recorded Time Influenza, split virus, quadrivalent, preservative 12/25/2018 [facility] 09/09/2023 08:30:35 Influenza, split virus, quadrivalent, preservative 12/26/2017 completed [facility] 09/09/2023 08:30:35 Influenza, split virus, quadrivalent, preservative 12/31/2019 completed Kayleigh Will null, [facility] 09/09/2023 08:30:35 Influenza, split virus, quadrivalent, preservative 01/05/2021 completed [facility] 09/09/2023 08:30:35 Influenza, split virus, quadrivalent, preservative 01/10/2017 completed [facility], [facility] 09/09/2023 08:30:35 zoster recombinant 10/08/2018 completed [facility], [facility] 09/09/2023 08:30:35 zoster recombinant 01/30/2019 completed Kayleigh Will null, [facility] 09/09/2023 08:30:35 COVID-19, mRNA, LNP-S, PF, 30 mcg/0.3 mL dose 05/17/2020 completed Kayleigh Will null, [facility] 09/09/2023 08:30:35 COVID-19, mRNA, LNP-S, PF, 30 mcg/0.3 mL dose 06/07/2020 completed Kayleigh Will null, [facility] 09/09/2023 08:30:35 COVID-19, mRNA, LNP-S, PF, 30 mcg/0.3 mL dose 12/24/2020 completed [facility] null, [facility] 09/09/2023 08:30:35 COVID-19, mRNA, LNP-S, PF, 30 mcg/0.3 mL dose, adore-sucrose 08/05/2021 completed [facility] null, [facility] 09/09/2023 08:30:35 COVID-19, mRNA, LNP-S, bivalent, PF, 30 mcg/0.3 mL dose 01/05/2022 completed Kayleigh Will null, [facility] 09/09/2023 08:30:36 Tdap 04/19/2008 completed Kayleigh Will null, [facility] 09/09/2023 08:30:36 Novel [id number], all formulations 03/22/2009 completed Kayleigh Will null, [facility] 09/09/2023 08:30:36 Influenza, split virus, trivalent, preservative 12/09/2008 completed Kayleigh Will null, [facility] 09/09/2023 08:30:36 Influenza, split virus, trivalent, preservative 01/19/2010 completed Kayleigh Will null, [facility] 09/09/2023 08:30:36 Influenza, split virus, trivalent, PF 01/09/2012 completed Kayleigh Will null, [facility] 09/09/2023 08:30:36 Influenza, split virus, trivalent, PF 01/15/2013 completed Kayleigh Will null, [facility] 09/09/2023 08:30:36 Influenza, split virus, trivalent, PF 01/27/2014 completed Kayleigh Will null, [facility] 09/09/2023 08:30:36 Influenza, split virus, trivalent, PF 02/23/2011 completed Kayleigh Will null, [facility] 09/09/2023 08:30:36 Td (adult), 5 Lf tetanus toxoid, preservative free, adsorbed 10/08/2018 completed Kayleigh Will null, [facility] 09/09/2023 08:30:36 Influenza, split virus, quadrivalent, PF 01/05/2022 completed Kayleigh Will null, [facility] 09/09/2023 08:30:36 Influenza, recombinant, quadrivalent, PF 01/12/2023 completed Kayleigh Will null, [facility] 09/09/2023 11:59:40 COVID-19, mRNA, LNP-S, PF, 50 mcg/0.5 mL 01/12/2023 completed GIOVANNI Woods [employer]ICER 09/09/2023 11:59:40 Past Encounters Encounter ID Performer Location Encounter Start Date Encounter Closed Date Diagnosis/Indication Diagnosis SNOMED-CT Code Diagnosis ICD10 Code [id number] BRENDA THORNE MD [id number] [address] [place] [address] 09/15/2020 10:05:46 09/15/2020 10:47:09 Gynecologic examination 75076388 Z01.177 [id number] BRENDA THORNE MD [id number] [address] [place] [address] 09/04/2021 17:05:23 09/04/2021 17:32:58 Gynecologic examination 78023837 Z01.539 [id number] BRENDA THORNE MD [id number] [address] [place] [address] 09/06/2022 15:52:06 09/06/2022 16:47:13 Gynecologic examination 28179153 Z01.231 [id number] TARA SADLER MD [id number] [address] [place] [address] 09/09/2023 11:49:36 09/09/2023 12:41:41 Gynecologic examination 99607352 Z01.419 Health Concerns Section Related Observation LastModified by Organization Detai ls LastModified Time None Recorded Concern Status LastModified by Organization Details LastModified Time None Recorded Advance Directives Directive Y: Payers Encounter Date Sequence Insurance Name Policy Number Policy Goel Covered Member ID Goel Member ID Guarantor Name 09/15/2020 1 [place] [id number] Dotty E D Hanis [id number] Dotty E D Hanis 09/04/2021 1 [place] [id number] Dotty E D Hanis [id number] Dotty Gould D Hanis 09/06/2022 1 [place] [id number] Dotty Gould D Hanis [id number] Dotty Gould D Hanis 09/09/2023 1 [place] [id number] Dotty Gould D Hanis [id number] Dotty Gould D Hanis Notes Date Note Type Note Provider Name and Address Organization Details Recorded Time 09/04/2021 text/html HPI Notes: Annua l Postmenopausal ([facility]) Reported by patient. Patient Relationship To Practice: established patient Sexually Active: Yes: same partner Mammogram: due; scheduled Pap Smear +/- HPV Cotesting: up-to-date Thyroid/Lipid Screening: done at primary. [place]oscopy[place] [address] [facility],[address], [place], [address], [place] [facility] 09/04/2021 17:32:49 09/06/2022 text/html HPI Notes: Annua l Postmenopausal ([facility]) Reported by patient. Patient Relationship To Practice: established patient Sexually Active: Yes: same partner Mammogram: due; scheduled Pap Smear +/- HPV Cotesting: up-to-date Thyroid/Lipid Screening: done at primary. [place]oscopy: [place] [id number] [facility],[address], [place], [address], [place] [facility] 09/06/2022 16:32:21 09/09/2023 text/html HPI Notes: Dotty is a postmenopausal 62yo who presents for an annual exam. She is sexually active with her . She denies dyspareunia or postcoital bleeding. She declines STD screening. She is up to date with her pap smear, NILM/HPV negative 08/2022. She denies a history of abnormal pap smears. She has not had any PMB. She denies fevers, chills, nausea, emesis, diarrea, constipation or dysuria. She denies SHANTAL or UUI. She denies a family history of breast, colon, uterine or ovarian cancers. She takes a MVI which has Vitamin D and fish oil for her dry eyes. She does not take an extra calcium supplement. 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 She is taking her mom to [place] for 3 days next week. She is also traveling with her to the [place] part [place] [facility]. She does HIIT and runs for exercise. She also lifts weights and does power walking and elliptical. She has a PCP who performs her annual exams and health maintenance labs. She also follows with her Encapsulator q6 months. Vaccines: s/p Shingrix Mammogram: 08/2022, BIRADS-1; just completed today prior to her visit Colonoscopy: 04/2022, next due in 7 years, 04/2029 DEXA scan: [place] [id number] [facility],[address], [place], [address], [place] [facility] 09/09/2023 12:38:15 OBGyn Episode Ob Episode Information Episode Created Date Number of Fetuses Patient Bloodtype Patient rh Status Prepregnancy Weight lbs Domestic Partner Domestic Partner Phone Father Name Telecommunications Engineer Status 09/16/19 21 1 CLOSED Fetus Data First Name Last Name Admitted to NICU Weight (g) Sex Living Outcome Pediatric Complications Fetus ID Race Codes Race Delivery Type M Full Term [id number] Jayson Calculation Initial Jayson Date Initial Exam Date Initial Exam Provider Initial Ultrasound Date Last Menstrual Period Date Ultra Sound Weeks Gestation 0 Eighteen To Twenty Week Jayson Update Ultra Sound Date Fundal Height At Umbil Quickening Date Ultra Sound Latest Weeks Gestation Final Jayson Confirmed By Final Jayson Confirmed Date Final Jayson Date Ultra Sound Latest Days Gestation 0 0 Menstrual History Last Menstrual Date Menses Monthly On Bcp Conception Prior Menses Frequency Hcg Plus Date Menarche Onset Age Delivery Information Delivery Date Delivery Type Labor Anesthesia Weeks Gestation Incision Type Labor Labor Length Hrs Delivered By Post Complications Tubal Sterilization Discharge Date Comments 7 Discharge Information Feeding Method Contraceptive Method Maternal HG B and HCT Levels Ob Episode Information Episode Created Date Number of Fetuses Patient Bloodtype Patient rh Status Prepregnancy Weight lbs Domestic Partner Domestic Partner Phone Father Name Telecommunications Engineer Status 09/16/19 21 1 CLOSED Fetus Data First Name Last Name Admitted to NICU Weight (g) Sex Living Outcome Pediatric Complications Fetus ID Race Codes Race Delivery Type F Full Term [id number] Jayson Calculation Initial Jayson Date Initial Exam Date Initial Exam Provider Initial Ultrasound Date Last Menstrual Period Date Ultra Sound Weeks Gestation 0 Eighteen To Twenty Week Jayson Update Ultra Sound Date Fundal Height At Umbil Quickening Date Ultra Sound Latest Weeks Gestation Final Jayson Confirmed By Final Jayson Confirmed Date Final Jayson Date Ultra Sound Latest Days Gestation 0 0 Menstrual History Last Menstrual Date Menses Monthly On Bcp Conception Prior Menses Frequency Hcg Plus Date Menarche Onset Age Delivery Information Delivery Date Delivery Type Labor Anesthesia Weeks Gestation Incision Type Labor Labor Length Hrs Delivered By Post Complications Tubal Sterilization Discharge Date Comments 4 Discharge Information Feeding Method Contraceptive Method Maternal HG B and HCT Levels
--- OUTSIDE RECORDS SUMMARY | 2023-12-15 10:27 | XMS_ITS | Clinical Summary ---
Author Organization [facility] Address [address] [place] [id number] Care Team Providers Care Health Promotion Educator Name Role Phone Criss Mendez PA-C Primary [...] 1975 HEPATITIS C SCREENING 10/19/1979 LIPID 2001 PHQ-2 (once per calendar year) 2023 YEARLY PREVENTIVE VISIT 09/07/2023 09/07/19 23, 09/04/2021, 09/15/2020, Additional history exists INFLUENZA VACCINE (#1) 2023 3, 01/05/2022, 01/05/2021, Additional history exists MAMMO SCREENING 09/08/2025 09/09/2023, 06/0 11/2022, 09/06/2021, Additional history exists HPV TEST 09/07/2027 09/06/2022, 08/30, 09/15/2020, Additional history exists PAP 09/07/2027 09/06/2022, 08/30, 09/15/2020, Additional history exists DTAP/TDAP/TD IMMUNIZATION (3 - Td or Tdap) 10/08/2028 10/08/2018, 04/19/2008 COLONOSCOPY 04/22/2032 04/22/2022 COLORECTAL CANCER SCREENING 04/22/2032 RSV VACCINE (1 - 1-dose 75+ series) 2036 ZOSTER IMMUNIZATION Completed 01/30/2019, 9 COVID-19 Vaccine [...] malignancy. Criss Mendez PA-C IMG MAMMOGRAPHY ORDERABLES * Gynecologic Cytology (PAP) (09/06/2022 [...] component of this testing was completed at [facility] 09/10/2022 1:47 PM CDT [facility] Brushing CERVIX UTERI STRUCTURE / Unknown 09/06/2022 4:31 PM CDT 09/06/2022 9:40 PM CDT Annelise GUERRA - [facility] Specialty Lab [address] [facility], [address] [id number], [facility] [phone] * HPV High Risk Types DNA Cervical (09/06/2022 4:31 PM CDT) Other HR HPV Negative Negative 09/12/2022 6:41 AM CDT [facility] HPV16 DNA Negative Negative 09/12/2022 6:41 AM CDT [facility] HPV18 DNA Negative Negative 09/12/2022 6:41 AM CDT [facility] FINAL DIAGNOSIS This patient's sample is negative for HPV DNA. This test was developed and its performance characteristics determined by the [facility]. 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
== END 2023-12-09 16:01 | disposition home or self-care (01) ==
LOC: NFLDREF 12-15 10:25
PROVIDERS: PCP Physician Assistant Medical; Referring Provider Physician Assistant Medical; Visit Provider Physician Assistant Medical
DX: R79.89 Other specified abnormal findings of blood chemistry (principal)
CPT/HCPCS: 84443; 86376

== ENCOUNTER 2025-01-27 08:40 | Outpatient (CLI) | payer BC, SELFPAY | END 2025-01-27 08:41 | disposition home or self-care (01) | LOC: NFLDREF 01-28 19:01 | PROVIDERS: PCP Physician Assistant Medical; Referring Provider Physician Assistant Medical; Visit Provider Physician Assistant Medical | DX: Z00.00 Encounter for general adult medical examination without abnormal findings (principal) | CPT/HCPCS: 80053; 80061; 84439; 84443; 87086 ==